=== PATIENT | female | born 1940 | race Caucasian/White ===

== ENCOUNTER → 2016-07-25 | Outpatient (CLI) | payer MEDICARE, OTHER ==
[~2016-07-25] MED LIST: ALBU8.5H5 INH; ANAS1TAB PO; CETI10CA PO; CHLO473M MT; CHOL20003 PO; DIPH25CA61 PO; FOLI0.4T2 PO; FURO-92 PO; GABA300C10 PO; HYDR-3240 PO; HYDR20TA22 PO; LEVO88TA2 PO; LYSI500T PO; MAGN500T PO; MESA250C PO; NYST15CR2 TP; OMNIPAQUE 350 MG/ML, 100ML BOTTLE ONE; POLY17PO5 PO; POTA20TA6 PO; TRAM50TA2 PO; VERA180T56 PO
== END | disposition home or self-care (01) ==
LOC: RAD 13:12
PROVIDERS: ATTEND Internal Medicine Gastroenterology
DX: R10.31 Right lower quadrant pain (principal)
CPT/HCPCS: 74177; Q9967

== ENCOUNTER → 2017-11-15 | Outpatient (CLI) | payer OTHER ==
[~2017-11-15] MED LIST changes: +CHOL2000 PO; -CHOL20003 PO; -OMNIPAQUE 350 MG/ML, 100ML BOTTLE ONE
== END | disposition home or self-care (01) ==
LOC: CARD 12:27
PROVIDERS: ATTEND Nurse Practitioner Family
DX: I63.9 Cerebral infarction, unspecified (principal)
CPT/HCPCS: 95819

== ENCOUNTER → 2017-12-11 | Outpatient (CLI) | payer OTHER | END | disposition home or self-care (01) | LOC: CFH 13:13 | PROVIDERS: ATTEND Internal Medicine | DX: M48.54XA Collapsed vertebra, not elsewhere classified, thoracic region, initial encounter for fracture (principal); I25.10 Atherosclerotic heart disease of native coronary artery without angina pectoris; I70.8 Atherosclerosis of other arteries; Z90.49 Acquired absence of other specified parts of digestive tract; Z88.0 Allergy status to penicillin | CPT/HCPCS: 71250 ==